=== PATIENT | male | born 1930 | race Caucasian/White ===

== ENCOUNTER → 2018-09-03 08:11 | Outpatient (CLI) | payer MEDICARE, OTHER ==
--- NOTE | 2018-09-03 13:55 | NUR ---
1030-PATIENT RIGHT NARE INTUBATED WITH HIGH RESOLUTION ESOPHAGEAL MANOMETRY, NOTED "BUTTERFLY" PRESSURE PATTERN NOTED ON SCREEN. APPROXIMATELY 12CM CATHETER REMOVED AND FURTHER ATTEMPT AT PROPER PLACEMENT THRU LOWER ESOPHAGEAL SPHINCTER. AGAIN "BUTTERFLY" PRESSURE PATTERN NOTED ON SCREE. CATHETER DISCONTINUED, INTACT. PATIENT DISCHARGED, PROCEDURE ABORTED. 1045-SPOKE WITH DR. ALEXIS @ NURSE'S DESK WITH REPORT OF ABORTED PROCEDURE-CURLED CATHETER IN ESOPHAGUS. PHONE CALL ALSO MADE TO LINETTE IN DR. ALEXIS'S OFFICE WITH INFORMATION GIVEN OF ABORTED PROCEDURE.
== END | disposition home or self-care (01) ==
LOC: D.OPS 08:11
DX: R13.10 Dysphagia, unspecified (principal); K21.9 Gastro-esophageal reflux disease without esophagitis

== ENCOUNTER 2018-09-24 05:53 | Day surgery (SDC) | payer MEDICARE, OTHER ==
[~2018-09-24] VITALS: Ht 172.7 cm; Wt 102.3 kg
--- NOTE | ~2018-09-24 | OP ---
PATIENT NAME: IRENE CATES MEDICAL RECORD: [id number] :34 LOCATION:D.OPS ADMISSION DATE: SURGEON: FRANDY ALEXIS MD DATE OF OPERATION: 09/24/2018 PREOPERATIVE DIAGNOSES: 1. Dysphagia. 2. Possible achalasia. 3. Coronary artery disease. 4. Atrial fibrillation. POSTOPERATIVE DIAGNOSES: 1. Dysphagia. 2. Possible achalasia. 3. Coronary artery disease. 4. Atrial fibrillation. PROCEDURE: EGD with esophageal manometry tube placement. SURGEON: Frandy Alexis MD REPORT OF PROCEDURE: An Olympus endoscope was advanced through the mouth and esophagus. We were able to pass into the stomach with ease. At this point, we pulled the scope out and placed the esophageal manometry tube. As we came down into the esophagus, we were able to see that this tube was curling up in the esophagus, so with gentle manipulation, I was able to push the tube through the esophagus into the stomach with the tip at the endoscope. Once we got the tip of the catheter into stomach, then I was able to pull back the scope and the catheter was left in position. At this point, the catheter was left in position for the continuation of the esophageal manometry when the patient awoke. COMPLICATIONS: None. CONDITION: Stable. ANESTHESIA: TIVA. BLOOD LOSS: Minimal. TRANSINT:[id number] Voice Confirmation ID: [id number] DOCUMENT ID: [id number] FRANDY ALEXIS MD CC: [id number] DICTATION DATE: 09/24/18 1005 REVENUE DIRECTOR: 09/24/18 1015 [facility] [address] [place] [address]
[2018-09-24] MEDS ORDERED: COUMADIN5 MG PO (06:54)
[2018-09-24] MEDS ORDERED: BETAPACE 120 M120 MG PO (06:54)
[2018-09-24] MEDS ORDERED: FAMOTIDINE10 MG PO (06:55)
[2018-09-24] MEDS ORDERED: LIPITOR40 MG PO (06:55)
[2018-09-24] MEDS ORDERED: ISOSORBIDE MONO30 M1 PO (06:56)
[2018-09-24] MEDS ORDERED: NEXIUM40 MG PO (06:57)
[2018-09-24] MEDS ORDERED: FISH OIL 1,0001 CA1 PO (06:57)
[2018-09-24] MEDS ORDERED: ASPIRIN81 MG PO (06:57)
[2018-09-24] MEDS ORDERED: RANITIDINE HCL150 M1 PO (06:58)
[2018-09-24 07:06] VITALS: BP 136/83; Ht 172.7 cm; Wt 102.3 kg
[2018-09-24 07:06] LABS: HEMATOCRIT 44.8 % (42.0-54.0); HEMOGLOBIN 14.9 g/dL (13.5-17.5); MCHC 33.3 g/dL (31.0-37.0); MCV 93.1 fL (80.0-100.0); MEAN PLATELET VOLUME 11.5 fL (7.4-10.4); RBC 4.81 10x6/uL (4.20-6.10); RDW 14.1 % (11.5-14.5); WBC 4.4 10x3/uL (4.8-10.8)
[2018-09-24 07:08] LABS: CALC OSMOLALITY 293 mosm/kg (275-300); CALCIUM 8.4 mg/dL (8.5-10.1); CARBON DIOXIDE 29.7 mmol/L (21.0-32.0); CHLORIDE - SERUM 110 mmol/L (98-107); CREATININE - SERUM 0.9 mg/dL (0.6-1.3); GLUCOSE 100 mg/dL (74-106); POTASSIUM - SERUM 3.7 mmol/L (3.5-5.1); SODIUM 147 mmol/L (136-145); UREA NITROGEN 17 mg/dL (7-18); eGFR NON AFRICAN AMERICAN 85 mL/min (90-120)
[2018-09-24 07:14] LABS: APTT 30.8 SECONDS (22.8-39.4); INR 1.42 (0.85-1.17); PROTIME 16.8 SECONDS (11.6-15.0)
== END 2018-09-24 11:40 | disposition home or self-care (01) ==
LOC: D.OPS 05:53
PROVIDERS: Anesthesiology; ATTEND Surgery
DX: R13.10 Dysphagia, unspecified (principal); I25.10 Atherosclerotic heart disease of native coronary artery without angina pectoris; I48.91 Unspecified atrial fibrillation; Z01.812 Encounter for preprocedural laboratory examination